=== PATIENT | female | born 1970 | race Caucasian/White ===

== ENCOUNTER 2021-07-08 06:58 | Day surgery (SDC) | payer BC ==
[2021-07-08] MEDS ORDERED: Propofol 200 MG/20 ML SDV ONE (07:00)
[2021-07-08] MEDS ORDERED: Midazolam 1 MG/ML 2 ML SDV ONE (07:00)
[2021-07-08] MEDS ORDERED: fentaNYL 100 MCG/2 ML SDV ONE (07:00)
[2021-07-08] MEDS ORDERED: Lactated Ringers 1,000 ML IV SCH (07:30)
== END 2021-07-08 09:35 | disposition home or self-care (01) ==
LOC: JP.SDS 06:58
PROVIDERS: ATTEND Surgery
DX: K57.31 Diverticulosis of large intestine without perforation or abscess with bleeding (principal)
CPT/HCPCS: J2250; J2704; J3010; J7120